=== PATIENT | male | born 1975 | race Hispanic/Latino ===

== ENCOUNTER 2022-08-13 01:17 | Emergency (ER) | payer OTHER ==
[~2022-08-13] VITALS: Ht 170.2 cm; Wt 96.2 kg
[2022-08-13 01:19] VITALS: BP 126/79
== END 2022-08-13 05:18 | disposition left against medical advice (07) ==
LOC: EDH 01:17
DX: R10.9 Unspecified abdominal pain (principal); Z53.21 Procedure and treatment not carried out due to patient leaving prior to being seen by health care provider
CPT/HCPCS: 99281